=== PATIENT | female | born 1960 | race Caucasian/White ===

== ENCOUNTER 2016-11-06 15:41 | Emergency (ER) | payer OTHER ==
[~2016-11-06 15:41] MED LIST: ACETAMINOPHEN PO; ANTIVERT PO; ASPIRIN PO; FLAGYL PO; LISINOPRIL PO; LOPRESSOR PO; SYNTHROID PO; ZESTORETIC 10/11 TAB PO; ZOCOR PO
== END 2016-11-06 15:48 | disposition home or self-care (01) ==
LOC: CFTX 15:41
DX: B37.9 Candidiasis, unspecified (principal); I11.0 Hypertensive heart disease with heart failure; I50.9 Heart failure, unspecified; F17.210 Nicotine dependence, cigarettes, uncomplicated
CPT/HCPCS: 99282

== ENCOUNTER 2017-03-15 07:56 | Inpatient (IN) | payer OTHER ==
[~2017-03-15] VITALS: Ht 165.1 cm; Wt 58.0 kg
--- NOTE | ~2017-03-15 | EKG ---
PATIENT: DARIELA LOJA UNIT #: [id number] Ventricular Rate: 78 BPM Atrial Rate: 78 BPM P-R Interval: 170 ms QRS Duration: 110 ms Q-T Interval: 476 ms QTC Calculation(Bezet): 542 ms P [place]: 66 degrees Calculated R [place]: -47 degrees Calculated T [place]: 76 degrees Diagnosis Line: Normal sinus rhythm Diagnosis Line: Left anterior fascicular block Diagnosis Line: Cannot rule out Anterior infarct (cited on or Diagnosis Line: before 15-MAR-2017) Diagnosis Line: Prolonged QT Diagnosis Line: Abnormal ECG Diagnosis Line: When compared with ECG of 15-MAR-2017 08:16, Diagnosis Line: (unconfirmed) Diagnosis Line: Premature ventricular complexes are no longer Diagnosis Line: Present Diagnosis Line: QRS duration has decreased Diagnosis Line: No significant change was found Diagnosis Line: Confirmed by KARLI CROFT MD ([id number]) on 03/16/2017 Diagnosis Line: 3:15:07 PM INTERPRETING MD: LANG REED
--- NOTE | ~2017-03-15 | HP ---
Unit #: [id number] #: [id number] Patient: DARIELA LOJA [id number] [address] [place], [place] [address] [id number] I MR#: [id number] NAME: DARIELA LOJA ROOM: [facility] Age: 56 Sex: F Admission Date: 03/15/2017 : 1960 Attending Physician: Teddy Zepeda M.D. Primary Care Physician: Viridiana Mary M.D. HISTORY AND PHYSICAL CHIEF COMPLAINT Shortness of breath. HISTORY OF PRESENT ILLNESS The patient is a 56-year-old female with history of coronary artery disease status post PCI back in 2001 and COPD, brought to the emergency room complaining of the shortness of breath. The patient woke up early this morning with shortness of breath. The patient was in respiratory distress at the time of emergency arrival and was intubated for the respiratory distress. The patient is status post intubation and sedation and is unable to provide the history and history is obtained by the speaking to the ER physician and the patient's family. The patient's and the daughter at the bedside. The patient was recently discharged from the [facility] on January 17 with a COPD exacerbation and acute respiratory failure and non-ST elevation [place] secondary to demand ischemia. The patient had an EF of 30% on cath at [facility]. The patient continues to smoke one and a half packs daily. The patient was having gradual worsening of the shortness of breath since the last few weeks. The patient refuses to come to the office for further evaluation as per patient's . The patient is positive for the productive cough and denies any fevers or chills. PAST MEDICAL HISTORY History of coronary artery disease status post stents, hypertension, hyperlipidemia, hypothyroidism. PAST SURGICAL HISTORY She has a bare-metal stent placement, cardiac catheterization. SOCIAL HISTORY The patient lives with her and two dogs. She smokes one and a half packs per day of tobacco. She used alcohol until several months ago. She stopped drinking alcohol and denies any illicit drug abuse. FAMILY HISTORY Positive for coronary artery disease. ALLERGIES No known drug allergies. REVIEW OF SYMPTOMS Unable to obtain as the patient is not able to provide any history. PHYSICAL EXAMINATION Unit #: [id number] #: [id number] Patient: DARIELA LOJA GENERAL APPEARANCE: The patient is lying on the bed, not in acute distress, status post intubation and sedation. VITAL SIGNS: Temperature 98.4. Pulse 57. Respiration 16, sating 100% on ventilation. Blood pressure 122/66. HEENT: Head: Atraumatic, normocephalic. Dry mucous membrane. Status post orotracheal intubation. LUNGS: Decreased air, coarse breath and positive for rales. HEART: Regular rate and rhythm. Positive for murmur. ABDOMEN: Soft. Positive bowel sounds. EXTREMITIES: No cyanosis. No clubbing. Cold to touch. NEUROLOGIC: Unable to assess as the patient is being intubated. DIAGNOSTIC STUDIES LABORATORY: Troponin less than 0.05. ABG shows pH of 7.15, pCO2 56, pO2 160, bicarb 19.9, oxygen saturation 91.5. INR of one. CBC 10.8, hemoglobin 13.9, hematocrit 42.2, platelets 212. Lactic acid 7. Sodium 137, potassium 4, chloride 104, bicarb 18, glucose 375, BUN 23, creatinine one, AST 92, ALT 62. BNP 1,572. Troponin is less than 0.05. CK total is 135. Repeat ABG is pH 7.35, pCO2 40, pO2 138, bicarb 22.6. IMAGING: Chest x-ray shows pulmonary edema ASSESSMENT 1. Acute respiratory failure. 2. Chronic obstructive pulmonary disease exacerbation. 3. Acute on chronic systolic heart failure. 4. Lactic acidosis. PLAN To admit the patient to inpatient. The patient will be started on the dopamine drip and continue with dialysis. Lasix 40 mg IV b.i.d. The patient will be seen by Cardiology and Pulmonary. Continue with the empiric IV antibiotics with Zosyn to rule out aspiration/COPD exacerbation and repeat the lactic acid level again and further recommendations will follow are more lab results are available. Dictated by Nora Longo TD: 03/15/2017 17:47 JOB #: [id number] HISTORY AND PHYSICAL Page 1 of 1 X TEDDY ZEPEDA MD X HISTORY AND PHYSICAL
--- NOTE | ~2017-03-15 | CO ---
Unit #: [id number] #: [id number] Patient: DARIELA LOJA [id number] [address] [place], [place] [address] [id number] MR#: [id number] NAME: DARIELA LOJA ROOM: [facility] Age: 56 Sex: F Admission Date: 03/15/2017 : 1960 Attending Physician: Neelima Zepeda M.D. Primary Care Physician: Viridiana Mary M.D. Consultation Date: 03/15/2017 CONSULTATION REPORT HISTORY OF PRESENT ILLNESS This is a 56-year-old white female, who is known to Dr. Herman at [facility] who has an extensive history of coronary artery disease. According to the , the patient has had several myocardial infarctions in the past. She had a coronary artery bypass graft 5 years ago. In 06/2017, she had PCI with stent placement to the [place] second obtuse marginal branch and distal end-anastomosis site of the saphenous vein graft to the PLOM. There was unsuccessful PCI to the saphenous vein graft to the right coronary artery. She has stent placement to the saphenous vein graft to the diagonal branch in 08/2016. She was discharged on 01/17/2017 from [facility] with COPD exacerbation. At that time, the patient's troponin was apparently elevated according to the discharge note. No further workup was needed. The patient is currently intubated and is unable to provide a history. Information has been obtained from records from [facility] and from the who is at bedside. According to the , the patient has had shortness of breath for the past 2 weeks. She developed a nonproductive cough. She was unable to lie down because of dyspnea and coughing. He thought that she had some chest pain that has been ongoing since her open heart surgery in the past. He felt that she was doing better since she was a put on a "new blood thinner." Records from [facility] shows that the patient was on dual anti-platelet therapy with aspirin and Brilinta. He heard her yell out for him this morning. When he saw her, she was short of breath. EMS was dispatched and she was brought to the emergency room. In the emergency room, the patient was in respiratory distress and was asking to be intubated according to the nursing staff. She was subsequently intubated. She was hypertensive prior to intubation with blood pressure of 180/130 mmHg, but dropped to 88/59 mmHg. Her BNP elevated at with a chest x-ray noted for congestive heart failure. Troponin initially negative. There was a mild elevation of her LFTs, which most likely reflects hepatic congestion. Lactic acid was elevated at 7.0 with mild elevation of white count. The states that the patient is known to have congestive heart failure. According to records from [facility], the patient has LV dysfunction where an ejection fraction was 30% on cardiac catheterization. That record is unavailable as well as the echocardiogram. PAST MEDICAL HISTORY 1. PCI with stent placement to the mid LAD, 09/07/2014. 2. Non-ST elevation myocardial infarction, 08/08/2016, status post PCI with drug eluting stent to saphenous vein graft to the diagonal branch at [facility] per Dr. Herman. 3. PCI with drug-eluting stent, 06/18/2016, to the second obtuse marginal Unit #: [id number] #: [id number] Patient: DARIELA LOJA branch to the vein graft. Stent of the proximal and distal anastomosis site of the SVG to the PLOM bypass. There was unsuccessful PCTA attempt to saphenous vein graft to the right coronary artery bypass graft. 4. Coronary artery bypass graft 5 years ago, no details available. 5. PCI and stents after myocardial infarction to the right coronary artery in 2001. 6. Hypertension. 7. Hyperlipidemia. 8. Hypothyroidism. 9. COPD. 10. Chronic systolic heart failure. 11. History of GI bleed. 12. Active smoker. PAST SURGICAL HISTORY 1. Thyroidectomy. 2. Tonsillectomy. 3. Tubal ligation. 4. Coronary artery bypass graft. SOCIAL HISTORY The patient is . According to the , she continues to smoke. He denies any use of alcohol. FAMILY HISTORY Positive for coronary artery disease in her father. ALLERGIES No known drug allergies. HOME MEDICATIONS Currently unreconciled. REVIEW OF SYSTEMS Unable to obtain because the patient is currently intubated. PHYSICAL EXAMINATION VITAL SIGNS: Blood pressure 180/130 to 88/59, heart rate 69, temperature 98.4, BMI is 24. GENERAL: This is a well-developed, 56-year-old white female, who is currently intubated and sedated. HEART: S1 and S2. Heart sounds are normal. No murmurs. No rubs or clicks. Regular rate and rhythm. LUNGS: Crackles in both lung bases. ABDOMEN: Soft and nontender. Bowel sounds are hypoactive. EXTREMITIES: With absent pedal pulses on the left and right with palpable pedal pulses. There is no leg edema. SKIN: Warm and dry. DIAGNOSTIC STUDIES LABORATORY RESULTS: Hemoglobin 13.9, hematocrit 42.2, platelet count 212, white count 10.8. Sodium 137, potassium 4.0, BUN 23, creatinine 1.0, glucose 375, AST 92, ALT 62, troponin less than 0.05, BNP , lactic acid 7.0. IMAGING STUDIES: Chest x-ray shows congestive heart failure. CARDIOVASCULAR STUDIES: EKG shows normal sinus rhythm with a rate of 84 Unit #: [id number] #: [id number] Patient: DARIELA LOJA beats per minute with left axis deviation, old inferior infarct, incomplete left bundle-branch block and premature ventricular complexes. IMPRESSION 1. Acute on chronic hypoxic respiratory failure. 2. Chronic obstructive pulmonary disease exacerbation. 3. Acute on chronic systolic heart failure with ejection fraction of 30%. 4. Coronary artery disease with history of myocardial infarction, coronary artery bypass graft and multiple percutaneous coronary interventions and stents. 5. History of hypertension, currently hypotensive. 6. Lactic acidosis. 7. Nicotine abuse. 8. Acute pulmonary edema. PLAN 1. Cardiology was consulted for congestive heart failure. We will diurese the patient with IV diuretics. 2. Continue to trend troponin to rule out myocardial infarction. 3. Continue dual anti-platelet therapy with aspirin and Brilinta given recent stent placed in 08/2016. 4. The patient has acute pulmonary edema and evidence of lactic acidosis with peripheries cold and clammy, probably secondary to vasoconstriction. We will try a small dose of dopamine given her EF was only 30% as per records at [facility]. 5. We will obtain records from [facility] of echocardiogram. 6. We will follow the patient with you. 7. Follow up with Dr. Herman at discharge. Thank you for allowing us to assist in this patient's care. Dictated by... Dennis Singh A.P.R.N. for Nora Marshall/cleve TD: 03/17/2017 03:35 JOB #: [id number] Kei Herman M.D. CONSULTATION REPORT Page 1 of 1 X Dennis Singh APRN X CONSULTATION REPORT
--- NOTE | ~2017-03-15 | EKG ---
PATIENT: DARIELA LOJA UNIT #: [id number] Ventricular Rate: 84 BPM Atrial Rate: 84 BPM P-R Interval: 172 ms QRS Duration: 132 ms Q-T Interval: 430 ms QTC Calculation(Bezet): 508 ms P [place]: 69 degrees Calculated R [place]: -50 degrees Calculated T [place]: 102 degrees Diagnosis Line: Sinus rhythm with occasional Premature ventricular Diagnosis Line: complexes Diagnosis Line: Left axis deviation Diagnosis Line: Non-specific intra-ventricular conduction block Diagnosis Line: Cannot rule out Septal infarct , age undetermined Diagnosis Line: T wave abnormality, consider lateral ischemia Diagnosis Line: Abnormal ECG Diagnosis Line: No previous ECGs available Diagnosis Line: Confirmed by KARLI CROFT MD ([id number]) on 03/16/2017 Diagnosis Line: 3:03:54 PM INTERPRETING MD: LANG REED
--- NOTE | ~2017-03-15 | CR72 ---
[facility] A Service of [facility] RADIOLOGY TEXT RESULTS PATIENT: DARIELA LOJA LOCATION: [facility] 579- : [birth year] UNIT #: [id number] AGE: [address]: Chen Pulido MD SEX: F ORDER DR: [id number] [facility] [address] [facility]. [place], [place] [address] [id number] I MR#: [id number] #: [id number] NAME: DARIELA LOJA : 1960 SEX: F STUDY DATE/TIME: 03/17/2017 6:03 UNIT: [facility] ROOM: [facility] STUDY DESCRIPTION: CR Chest Single View Portable Attending Physician: Neelima Zepeda M.D. Ordering Physician: Zack Mccray M.D. Primary Care Physician: Viridiana Mary M.D. MEDICAL IMAGING REPORT This report is preliminary unless electronic signature is present EXAM Portable chest HISTORY 56-year-old female with respiratory failure, COPD exacerbation. COMPARISON 03/16/2017 FINDINGS Interval removal of the patient's endotracheal tube. Mild pulmonary hyperinflation. No infiltrates or effusions. Heart and mediastinum unremarkable except for post median sternotomy changes and prior CABG. Flexible feeding tube courses through the mediastinum, distal tip not visualized but well below the GE junction. No pneumothorax. Dictated by... Laisha Davalos M.D. THIS IS AN ELECTRONICALLY VERIFIED REPORT Laisha Davalos M.D. at 03/17/2017 4:47 PM MONAE/kyle TD: 03/17/2017 08:30 JOB #: [id number] MEDICAL IMAGING REPORT Page 1 of 1 COPY
--- NOTE | ~2017-03-15 | CO ---
Unit #: [id number] #: [id number] Patient: DARIELA LOJA [id number] [address] [place], [place] [address] [id number] I MR#: [id number] NAME: DARIELA LOAJ ROOM: 579 Age: 56 Sex: F Admission Date: 03/15/2017 : 1960 Attending Physician: Chen Pulido M.D. Primary Care Physician: Viridiana Mary M.D. Consultation Date: 03/16/2017 CONSULTATION REPORT INDICATION FOR CONSULT Respiratory failure. HISTORY OF PRESENT ILLNESS All history is obtained from chart and staff. This patient is nonverbal secondary to sedation and endotracheal tube. The patient had recently been discharged from [facility] 01/17/2017 after presenting with shortness of breath and chest tightness. She had been treated with steroids and antibiotics and seen by Cardiology at that point, where further workup we felt was not necessary. She was discharged with doxycycline and prednisone to complete her course. She had a history of coronary artery bypass surgery and stenting in 08/2016 with her prior echo in 02/2016 revealing an EF 25% to 30%. She had continued to smoke. She had a bare-metal stent placed in 09/2014 to the mid LAD. Cardiac cath in 07/2016 showed severe left ventricular systolic dysfunction with mild mitral regurgitation, severe three-vessel coronary artery disease with atretic, but patent mid LAD, patent and stented Y graft to two marginal branches, circumflex with small severely diffuse disease diagonal branch and chronically occluded SVG to RCA. In 08/2016, she had drug-eluting stent to the SVG to diagonal and in 06/2016 had a drug-eluting stent placement as well too. She presented here yesterday in respiratory distress and was intubated in the ER and then transferred to the ICU for further management. PAST MEDICAL HISTORY Positive for CHF, COPD, coronary artery disease, hypertension, dyslipidemia. PAST SURGICAL HISTORY Include excessive cardiac catheterization, thyroidectomy in 2001. ALLERGIES No known drug allergies. SOCIAL HISTORY Positive for tobacco abuse. FAMILY HISTORY Positive for coronary artery disease in her dad. MEDICATIONS Current home medications include aspirin, atorvastatin, Coreg, hydrocodone, hydroxyzine, isosorbide dinitrate, levothyroxine, lisinopril, nitroglycerin, Ranexa, Brilinta, guaifenesin. Unit #: [id number] #: [id number] Patient: DARIELA LOJA In the ER, she received IV Lasix and Solu-Medrol. PHYSICAL EXAMINATION VITAL SIGNS: Temperature 99.7, pulse 66, respirations 16, blood pressure 98/60. GENERAL: The patient awake on the vent. She is orally intubated. HEENT: Pupils are equal and reactive to light stimulus. Extraocular motion intact. Conjunctivae normal. Oral mucosa, pink and moist without lesion. No tongue deviation on protrusion. Soft palate intact. NECK: Trachea midline. No cervical or supraclavicular adenopathy. LUNGS: Clear to auscultation without wheezes, rhonchi, or rales. CARDIAC: Regular rate and rhythm. S1 and S2 are auscultated without murmur. ABDOMEN: Soft, nontender, nondistended. Positive bowel sounds. EXTREMITIES: Moves all 4 extremities with good strength and tone. No cyanosis, clubbing, or edema. SKIN: Cool and dry. NEUROLOGIC: Calm affect. She does follow complex commands on the ventilator. DIAGNOSTIC STUDIES IMAGING STUDIES: Chest x-ray on admission showed bilateral interstitial markings consistent with pulmonary edema. Chest x-ray this morning shows significant clearance. LABORATORY RESULTS: White count on admission was 10, hematocrit was 42, platelets 212. ABG on admission showed pH of 7.1, pCO2 of 56, PO2 of 160 with a lactate of 7. This morning, her pH is 7.49, pCO2 of 34, PO2 of 94. Troponin 0.7. White count 12, hematocrit 44, and platelets 220. Sodium 136, potassium 3.1, chloride 98, bicarb 24, glucose 148, BUN 19, creatinine 0.9. Lactate 0.5. IMPRESSION 1. Respiratory failure. 2. congestive heart failure. 3. Resolved lactic acidosis. PLAN There is no pneumonia on chest x-ray. She had a normal white count, on admission. Plan to discontinue antibiotics as I do not feel we are dealing with an active infection and more likely we felt lactic acidosis related to poor cardiac perfusion from underlying heart failure. Although as well as the possibility of hypoxic stress related to underlying COPD and ongoing tobacco abuse. Plan is stop sedation and attempt . We will use BiPAP once extubated, initiate an aggressive bronchodilator regimen. Diuretics and pressors per . We will continue to follow and make further recommendations clinically if indicated. Thank you for the opportunity to be involved in her care. Dictated by... Zack Mccray M.D. ARIELA/cleve TD: 03/17/2017 01:19 Unit #: [id number] #: [id number] Patient: DARIELA LOJA JOB #: [id number] CONSULTATION REPORT Page 1 of 1 X Zack Mccray MD X CONSULTATION REPORT
--- NOTE | ~2017-03-15 | CR72 ---
[facility] A Service of [facility] RADIOLOGY TEXT RESULTS PATIENT: DARIELA LOJA LOCATION: [place] [id number] : [birth year] UNIT #: [id number] AGE: [address]: TEDDY ZEPEDA MD SEX: F ORDER DR: [id number] [facility] [address] [place], [place] [address] [id number] I MR#: [id number] Acc #: [id number] NAME: DARIELA LOJA : 1960 SEX: F STUDY DATE/TIME: 03/15/2017 8:14 UNIT: [facility] ROOM: [facility] STUDY DESCRIPTION: CR Chest Single View Portable Attending Physician: Teddy Zepeda M.D. Ordering Physician: Harshad Sanchez M.D. Primary Care Physician: Viridiana Mary M.D. MEDICAL IMAGING REPORT This report is preliminary unless electronic signature is present EXAM Portable chest, 03/15/17 HISTORY Dyspnea, shortness of breath onset today with intubation TECHNIQUE Single AP view of the chest was obtained and compared with 01/29/09. FINDINGS Postoperative changes of CABG are noted. Cardiomegaly is seen. The tip of the endotracheal tube is in good position above the omar. In the lungs diffuse interstitial edema is seen with mild pulmonary vascular congestion and Damian's lines. Findings suggest moderate congestive heart failure. No pleural fluid is noted. IMPRESSION 1. Moderate congestive heart failure with Damian's lines, interstitial edema and pulmonary vascular congestion. 2. The tip of the endotracheal tube is in good position above the omar. Dictated by... Uriah Odom M.D. THIS IS AN ELECTRONICALLY VERIFIED REPORT Uriah Odom M.D. at 03/16/2017 10:32 AM PIA/vinny TD: 03/16/2017 01:54 JOB #: [id number] [facility] A Service [facility] RADIOLOGY TEXT RESULTS PATIENT: DARIELA LOJA LOCATION: [facility] [id number] : [birth year] UNIT #: [id number] AGE: [address]: TEDDY ZEPEDA MD SEX: F ORDER DR: MEDICAL IMAGING REPORT Page 1 of 1 COPY
--- NOTE | ~2017-03-15 | DS ---
Unit #: [id number] #: [id number] Patient: DARIELA LOJA [id number] [address] [address] [id number] I MR#: [id number] NAME: DARIELA LOJA ROOM: 579 Age: 56 Sex: F Admission Date: 03/15/2017 : 1960 Discharge Date: Attending Physician: Chen Pulido M.D. Primary Care Physician: Viridiana Mary M.D. DISCHARGE SUMMARY DISCHARGE DIAGNOSES 1. Acute hypercapnic hypoxic respiratory failure. 2. Acute on chronic systolic heart failure with ejection fraction 30% to 35%. 3. Elevated troponins. 4. Lactic acidosis likely from congestive heart failure. 5. History of coronary artery disease with non-ST elevation myocardial infarction in August 2016 status post percutaneous coronary intervention with drug-eluting stent. 6. Hyperlipidemia. 7. Hypothyroidism. 8. Chronic obstructive pulmonary disease with exacerbation. 9. History of gastrointestinal bleed. 10. Active smoker. 11. Hypertension. 12. Mild transaminitis, likely from congestive heart failure. CONSULTATIONS 1. Dr. Knight. 2. Dr. Gilman. PROCEDURES None. DIAGNOSTIC TESTING LAB DATA: Sodium 138, potassium 4.1, creatinine 0.9. WBC 8.3, hemoglobin 15.5, platelets 238. Troponin is 0.14. Cholesterol 412, LDL 316, HDL 48. BNP 511. TSH 9.8. Blood cultures negative. IMAGING: Chest x-ray shows interval improvement in appearance. Underlying COPD present. ALLERGIES None. DISCHARGE MEDICATIONS 1. Atorvastatin 80 mg p.o. daily. 2. Hydroxyzine 25 p.o. t.i.d. 3. Coreg 6.25 p.o. b.i.d. 4. Lasix 20 p.o. b.i.d. 5. Lisinopril 5 mg p.o. daily. 6. Aspirin 81 mg daily. 7. Lortab 5 mg q.6 p.r.n. pain. 8. Ranexa 1,000 mg p.o. b.i.d. Unit #: [id number] #: [id number] Patient: DARIELA LOJA 9. Brilinta 90 mg p.o. b.i.d. 10. Levothyroxine 150 mcg p.o. daily. 11. Imdur ER 30 mg p.o. daily. 12. Nitroglycerin 0.4 sublingual p.r.n. chest pain. 13. Potassium 10 mEq daily. 14. Albuterol MDI 2 puffs inhalation q.i.d. p.r.n. pain. 15. Symbicort 2 puffs inhalation 160 mcg b.i.d. HOSPITALIZATION COURSE A 56 year old admitted with shortness of breath. Acute hypercapnic hypoxic respiratory failure from COPD and CHF. Currently she is off oxygen. She does not need home O2. Acute on chronic systolic heart failure, ejection fraction 30% to 35%. Patient seen by cardiology. They started her on IV diuretics. Currently compensated. Continue with p.o. Lasix and lisinopril. She does need evaluation for AICD as an outpatient. COPD with exacerbation. Started on IV Solu-Medrol and DuoNeb. Currently off oxygen. Lungs better. No wheezing. Continue with albuterol and Symbicort and outpatient followup with Dr. Gilman. Lactic acidosis secondary to CHF, resolved. Hypertension with mild hypotension secondary to medications, resolved. Continue current medications with caution. History of coronary artery disease with elevated troponin status post PCI. The patient was seen by cardiology. They recommend continue with Brilinta, aspirin and Lipitor. Smoking. Advised to quit. DISCHARGE PLAN 1. The patient will be discharged home. 2. Follow with family physician in 1 week. 3. Follow with Dr. Gilman in 3 weeks. 4. Follow with Dr. Knight on 05/05/2017. 5. The patient will have CHF education. 6. The patient will have AICD evaluation as an outpatient by Dr. Knight. NOTE: Discharge time taken is 32 minutes. Dictated by... Nora Li TD: 03/19/2017 14:01 JOB #: [id number] Unit #: [id number] #: [id number] Patient: DARIELA LOJA DISCHARGE SUMMARY Page 1 of 1 X Chen Pulido MD X DISCHARGE SUMMARY
--- NOTE | ~2017-03-15 | CR72 ---
[facility] A Service of [facility] & [facility] RADIOLOGY TEXT RESULTS PATIENT: DARIELA LOJA LOCATION: [facility] [place] [facility] 579-01 : [birth year] UNIT #: [id number] AGE: [address]: Chen Pulido MD SEX: F ORDER DR: [id number] [facility] [address] [place], [place] [address] [id number] I MR#: [id number] Acc #: [id number] NAME: DARIELA LOJA : 1960 SEX: F STUDY DATE/TIME: 03/16/2017 5:58 UNIT: [facility] ROOM: [facility] STUDY DESCRIPTION: CR Chest Single View Portable Attending Physician: Neelima Zepeda M.D. Ordering Physician: Brian Vu M.D. Primary Care Physician: Viridiana Mary M.D. MEDICAL IMAGING REPORT This report is preliminary unless electronic signature is present EXAM Chest x-ray single view portable HISTORY Respiratory failure with COPD exacerbation starting 03/15/2017. Patient also has a history of essential hypertension and is a smoker. COMMENT Single frontal portable view of the chest timed 05:58 on 03/16/2017 reviewed. Comparison from 03/15/2017. There is endotracheal tube satisfactorily positioned. Mild postoperative cardiac silhouette enlargement noted. Feeding tube seen, tip not on film. There is no evidence for acute infiltrate, acute congestive failure, pleural effusion or pneumothorax. The chest is improved since yesterday, with some apparent resolution of volume overload. Please correlate with clinical course. IMPRESSION 1. Interval improvement in the appearance of the chest since yesterday with apparent resolution of volume overload. There is postoperative cardiac silhouette enlargement, unchanged. Endotracheal tube satisfactory. Distortion of pulmonary parenchymal architecture again seen consistent with known underlying chronic obstructive lung disease. Dictated by... Karen Sherman M.D. THIS IS AN ELECTRONICALLY VERIFIED REPORT Karen Sherman M.D. at 03/17/2017 4:50 PM [facility] A Service of [facility] & [facility] RADIOLOGY TEXT RESULTS PATIENT: DARIELA LOJA LOCATION: C5 579-01 : [birth year] UNIT #: [id number] AGE: [address]: Chen Pulido MD SEX: F ORDER DR: Vivienne TD: 03/16/2017 22:23 JOB #: [id number] MEDICAL IMAGING REPORT Page 1 of 1 COPY
--- NOTE | ~2017-03-15 | CR7 ---
[facility] A Service of [facility] & [facility] RADIOLOGY TEXT RESULTS PATIENT: DARIELA LOJA LOCATION: [address]3-21 : [birth year] UNIT #: [id number] AGE: [address]: TEDDY ZEPEDA MD SEX: F ORDER DR: [id number] [facility] [address] [facility]. [place], [place] [address] [id number] I MR#: [id number] Acc #: [id number] NAME: DARIELA LOJA : 1960 SEX: F STUDY DATE/TIME: 03/15/2017 16:00 UNIT: [facility] ROOM: [facility] STUDY DESCRIPTION: CR Abdomen Single AP View Attending Physician: Teddy Zepeda M.D. Ordering Physician: Brian Vu M.D. Primary Care Physician: Viridiana Mary M.D. MEDICAL IMAGING REPORT This report is preliminary unless electronic signature is present EXAM Portable abdomen. HISTORY Dobbhoff tube placement. FINDINGS Portable radiograph of the abdomen for Dobbhoff tube placement demonstrates the feeding tube tip is in the medial left upper quadrant at the level of the proximal stomach 6 cm beyond the EG junction. The bowel gas pattern is normal. Dictated by... Marvin Ramos M.D. THIS IS AN ELECTRONICALLY VERIFIED REPORT Marvin Ramos M.D. at 03/16/2017 10:06 PM DFL/kristy TD: 03/16/2017 17:08 JOB #: [id number] MEDICAL IMAGING REPORT Page 1 of 1 COPY
[2017-03-15 08:40] LABS: ARTERIAL BLD GAS O2 SATURATION 91.5 % (90.0-100.0); ARTERIAL BLOOD GAS CARBOXY HB 6.8 %sat (0.0-9.0); ARTERIAL BLOOD GAS HCO3 19.9 mmol/L; ARTERIAL BLOOD GAS MET HB 0.7 %sat (0.0-2.0)
[2017-03-15 08:41] LABS: POC - CKMB 2.2 ng/mL (0.0-7.9); POC - TROPONIN <0.05 ng/mL (<=0.05)
[2017-03-15 08:43] LABS: ARTERIAL BLOOD GAS ALLEN TEST NORMAL; ARTERIAL BLOOD GAS ART SITE RIGHT RADIAL; ARTERIAL BLOOD GAS DELIVERY VENT; ARTERIAL BLOOD GAS PCO2 56.4 mmHg (35.0-45.0); ARTERIAL BLOOD GAS VENT MODE AC; ARTERIAL BLOOD GAS pH 7.155 (7.350-7.450); ARTERIAL DRAW? YES
[2017-03-15 08:43] LABS: BASOPHIL# 0.1 X10e3 (0-0.3); BASOPHIL% 1.1 % (0-2.5); EOSINOPHIL# 0.2 X10e3 (0-0.7); EOSINOPHIL% 1.4 % (0.0-7.0); HEMATOCRIT 42.2 % (35.0-45.0); HEMOGLOBIN 13.9 gm/dL (12.0-16.0); LYMPHOCYTE# 5.8 X10e3 (1.0-3.5); LYMPHOCYTE% 54.2 % (17.0-45.0); MEAN CORPUSCULAR HEMOGLOBIN 30.9 PG (28-34); MEAN CORPUSCULAR HGB CONC 32.8 g/dL (30-36); MEAN PLATELET VOLUME 7.7 FL (6.5-11.5); MONOCYTE# 0.4 X10e3 (0-1.0); NEUTROPHIL# 4.2 X10e3 (1.5-7.1); NEUTROPHIL% 39.3 % (40-75); PLATELET COUNT 212 X10e3 (140-420); RED BLOOD COUNT 4.49 X10e (3.90-5.30); RED CELL DISTRIBUTION WIDTH 20.2 % (11.0-15.5); WHITE BLOOD COUNT 10.8 X10e3 (4.0-10.5)
[2017-03-15 08:44] LABS: DIFF IND YES
[2017-03-15 08:48] LABS: PARTIAL THROMBOPLASTIN TIME 27.8 SECONDS (23.5-31.3); PROTHROMBIN TIME (PATIENT) 10.8 SECONDS (10.0-11.7)
[2017-03-15 08:59] LABS: ANISOCYTOSIS MOD; PLATELET ESTIMATE NORMAL (NORMAL)
[2017-03-15 09:01] LABS: ALBUMIN SERUM 3.8 g/dL (3.5-5.0); BILIRUBIN, DIRECT 0.2 mg/dL (0.0-0.2); BILIRUBIN,TOTAL 0.2 mg/dL (0.2-2.0); CALCIUM SERUM 8.4 mg/dL (8.4-10.2); GLOM FILT RATE Estimated 63.4 mL/min (>60); PROTEIN TOTAL SERUM 6.7 g/dL (6.0-8.3)
[2017-03-15 10:02] LABS: POC - CKMB 2.4 ng/mL (0.0-7.9); POC - TROPONIN <0.05 ng/mL (<=0.05)
[2017-03-15 11:24] LABS: ARTERIAL BLD GAS O2 SATURATION 94.4 % (90.0-100.0); ARTERIAL BLOOD GAS CARBOXY HB 4.2 %sat (0.0-9.0); ARTERIAL BLOOD GAS HCO3 22.6 mmol/L; ARTERIAL BLOOD GAS MET HB 0.8 %sat (0.0-2.0); ARTERIAL BLOOD GAS PCO2 40.3 mmHg (35.0-45.0); ARTERIAL BLOOD GAS pH 7.357 (7.350-7.450)
[2017-03-15 11:25] LABS: ARTERIAL BLOOD GAS ALLEN TEST NORMAL; ARTERIAL BLOOD GAS ART SITE RIGHT RADIAL; ARTERIAL BLOOD GAS DELIVERY VENT; ARTERIAL BLOOD GAS VENT MODE AC; ARTERIAL DRAW? YES
[2017-03-15 15:58] LABS: %MB 3.8 % (0.0-4.0); MB 5.1 ng/ml
[2017-03-15] MEDS ORDERED: MORGIDOX100 MG PO (16:58)
[2017-03-15] MEDS ORDERED: ATORVASTATIN CA80 MG PO (17:08)
[2017-03-15] MEDS ORDERED: COREG3.125 MG PO (17:08)
[2017-03-15] MEDS ORDERED: ASPIRIN81 M2 PO (17:08)
[2017-03-15] MEDS ORDERED: HYDROCODON-ACE1 EAC7 PO (17:10)
[2017-03-15] MEDS ORDERED: HYDROXYZINE PAM25 M1 PO (17:11)
[2017-03-15] MEDS ORDERED: ISOSORBIDE DINIT5 MG PO (17:12)
[2017-03-15] MEDS ORDERED: LISINOPRIL2.5 MG PO ×2 (17:13→17:14)
[2017-03-15] MEDS ORDERED: LEVOTHYROXINE150 MCG PO (17:13)
[2017-03-15] MEDS ORDERED: NITROGLYGERIN0.4 MG SL (17:15)
[2017-03-15] MEDS ORDERED: RANEXA1000 MG PO (17:15)
[2017-03-15] MEDS ORDERED: BRILINTA90 MG PO (17:16)
[2017-03-15] MEDS ORDERED: MUCUS RELIEF600 M1 PO (17:24)
[2017-03-15 20:45] LABS: %MB 3.8 % (0.0-4.0); MB 4.4 ng/ml
[2017-03-16 02:54] LABS: BASOPHIL% 0.3 % (0-2.5); HEMATOCRIT 44.6 % (35.0-45.0); HEMOGLOBIN 14.9 gm/dL (12.0-16.0); LYMPHOCYTE# 1.3 X10e3 (1.0-3.5); LYMPHOCYTE% 10.7 % (17.0-45.0); MEAN CORPUSCULAR HEMOGLOBIN 30.1 PG (28-34); MEAN CORPUSCULAR HGB CONC 33.4 g/dL (30-36); MEAN PLATELET VOLUME 7.4 FL (6.5-11.5); MONOCYTE# 0.7 X10e3 (0-1.0); MONOCYTE% 5.5 % (3.0-12.0); NEUTROPHIL% 83.5 % (40-75); PLATELET COUNT 220 X10e3 (140-420); RED BLOOD COUNT 4.95 X10e (3.90-5.30); RED CELL DISTRIBUTION WIDTH 18.8 % (11.0-15.5)
[2017-03-16 02:56] LABS: DIFF IND NO
[2017-03-16 03:18] LABS: BUN/CREATININE RATIO 21.11; CALCIUM SERUM 8.4 mg/dL (8.4-10.2); CREATININE SERUM 0.9 mg/dL (0.6-1.4); MAGNESIUM 1.8 mg/dL (1.6-3.0); POTASSIUM 3.1 mmol/L (3.5-5.1)
[2017-03-16 03:53] LABS: ARTERIAL BLD GAS O2 SATURATION 96.4 % (90.0-100.0); ARTERIAL BLOOD GAS ALLEN TEST NORMAL; ARTERIAL BLOOD GAS ART SITE RIGHT RADIAL; ARTERIAL BLOOD GAS CARBOXY HB 0.7 %sat (0.0-9.0); ARTERIAL BLOOD GAS DELIVERY VENT; ARTERIAL BLOOD GAS HCO3 26.5 mmol/L; ARTERIAL BLOOD GAS MET HB 1.1 %sat (0.0-2.0); ARTERIAL BLOOD GAS PCO2 34.5 mmHg (35.0-45.0); ARTERIAL BLOOD GAS PO2 90.7 mmHg (80.0-100); ARTERIAL BLOOD GAS VENT MODE AC; ARTERIAL BLOOD GAS pH 7.494 (7.350-7.450); ARTERIAL DRAW? YES
[2017-03-16 06:22] LABS: %MB 3.1 % (0.0-4.0); MB 4.1 ng/ml
[2017-03-17 05:41] LABS: BASOPHIL% 0.2 % (0-2.5); DIFF IND NO; EOSINOPHIL% 0.4 % (0.0-7.0); HEMATOCRIT 46.9 % (35.0-45.0); HEMOGLOBIN 15.7 gm/dL (12.0-16.0); LYMPHOCYTE# 1.6 X10e3 (1.0-3.5); LYMPHOCYTE% 15.3 % (17.0-45.0); MEAN CORPUSCULAR HEMOGLOBIN 30.5 PG (28-34); MEAN CORPUSCULAR HGB CONC 33.5 g/dL (30-36); MEAN PLATELET VOLUME 7.7 FL (6.5-11.5); MONOCYTE# 0.7 X10e3 (0-1.0); MONOCYTE% 6.1 % (3.0-12.0); NEUTROPHIL# 8.3 X10e3 (1.5-7.1); PLATELET COUNT 221 X10e3 (140-420); RED BLOOD COUNT 5.16 X10e (3.90-5.30); RED CELL DISTRIBUTION WIDTH 18.9 % (11.0-15.5); WHITE BLOOD COUNT 10.7 X10e3 (4.0-10.5)
[2017-03-17 06:01] LABS: BUN/CREATININE RATIO 27.5; CREATININE SERUM 0.8 mg/dL (0.6-1.4); GLOM FILT RATE Estimated 83.1 mL/min (>60); POTASSIUM 3.5 mmol/L (3.5-5.1)
[2017-03-17 13:44] LABS: CHOLESTEROL 412 mg/dL (0-200); HDL CHOLESTEROL 48 mg/dL (35-95); LDL/HDL RATIO 7 RATIO (0-4); TRIGLYCERIDES 240 mg/dL (10-160)
[2017-03-17 13:46] LABS: LDL CHOLESTEROL 316 mg/dL (-130)
[2017-03-18 05:13] LABS: HEMATOCRIT 46.4 % (35.0-45.0); HEMOGLOBIN 15.5 gm/dL (12.0-16.0); MEAN CELL VOLUME 90.3 FL (83-96); MEAN CORPUSCULAR HEMOGLOBIN 30.3 PG (28-34); MEAN CORPUSCULAR HGB CONC 33.5 g/dL (30-36); MEAN PLATELET VOLUME 7.2 FL (6.5-11.5); RED BLOOD COUNT 5.13 X10e (3.90-5.30); RED CELL DISTRIBUTION WIDTH 18.1 % (11.0-15.5); WHITE BLOOD COUNT 8.3 X10e3 (4.0-10.5)
[2017-03-18 06:10] LABS: BUN/CREATININE RATIO 26.92; CALCIUM SERUM 9.2 mg/dL (8.4-10.2); CREATININE SERUM 1.3 mg/dL (0.6-1.4); GLOM FILT RATE Estimated 46.2 mL/min (>60); MAGNESIUM 2.3 mg/dL (1.6-3.0); POTASSIUM 3.9 mmol/L (3.5-5.1)
[2017-03-19 07:52] LABS: BUN/CREATININE RATIO 51.11; CALCIUM SERUM 9.4 mg/dL (8.4-10.2); CREATININE SERUM 0.9 mg/dL (0.6-1.4); POTASSIUM 4.1 mmol/L (3.5-5.1)
[2017-03-19] MEDS ORDERED: LASIX20 MG PO (16:57)
[2017-03-19] MEDS ORDERED: IMDUR-ER30 MG PO (17:01)
[2017-03-19] MEDS ORDERED: POTASSIUM CHLO10 MEQ PO (17:05)
[2017-03-19] MEDS ORDERED: ALBUTEROL17 GM INH (17:06)
[2017-03-19] MEDS ORDERED: SYMBICORT INH (17:07)
[2017-04-30] MEDS ORDERED: LASIX PO (11:36)
[2017-04-30] MEDS ORDERED: ALBUTEROL17 GM INH (11:37)
[2017-04-30] MEDS ORDERED: ASPIRIN81 M2 PO (11:37)
[2017-04-30] MEDS ORDERED: HYDROCODON-ACE1 EAC5 PO (11:38)
[2017-04-30] MEDS ORDERED: COREG6.25 M1 PO (11:38)
[2017-04-30] MEDS ORDERED: LIPITOR PO (11:38)
[2017-04-30] MEDS ORDERED: MUCINEX1200 MG PO (11:38)
[2017-04-30] MEDS ORDERED: NITROSTAT0.4 MG PO (11:39)
[2017-04-30] MEDS ORDERED: ZESTRIL10 M1 PO (11:39)
[2017-04-30] MEDS ORDERED: HYDROXYZINE HCL25 M1 PO (11:39)
[2017-04-30] MEDS ORDERED: IMDUR-ER60 M1 PO (11:39)
[2017-04-30] MEDS ORDERED: SYNTHROID25 MCG PO (11:39)
[2017-04-30] MEDS ORDERED: BRILINTA90 MG PO (11:40)
[2017-04-30] MEDS ORDERED: RANEXA500 MG PO (11:40)
[2017-05-01] MEDS ORDERED: ALDACTONE25 MG PO (14:36)
== END 2017-03-19 19:22 | disposition home or self-care (01) | DRG 208 ==
LOC: CED 07:56 → CEDOF 10:09 → C5C 10:09 → CEDOF 11:02 → CED 11:02 → CEDOF 11:57 → CICCU3 11:57 → C5C 03-17 14:51
PROVIDERS: Emergency Medicine; Internal Medicine; Internal Medicine Cardiovascular Disease; Nurse Practitioner
PROC: 0BH17EZ Insertion of Endotracheal Airway into Trachea, Via Natural or Artificial Opening (ICD-10-PCS; principal; 2017-03-15)
PROC: 5A1945Z Respiratory Ventilation, 24-96 Consecutive Hours (ICD-10-PCS; 2017-03-15)
DX: J96.01 Acute respiratory failure with hypoxia (principal); I50.23 Acute on chronic systolic (congestive) heart failure; J44.1 Chronic obstructive pulmonary disease with (acute) exacerbation; E87.2 Acidosis; J96.02 Acute respiratory failure with hypercapnia; I25.10 Atherosclerotic heart disease of native coronary artery without angina pectoris; Z95.5 Presence of coronary angioplasty implant and graft; I25.2 Old myocardial infarction; E78.5 Hyperlipidemia, unspecified; E03.9 Hypothyroidism, unspecified; F17.210 Nicotine dependence, cigarettes, uncomplicated; Z98.51 Tubal ligation status; I95.2 Hypotension due to drugs; Z71.6 Tobacco abuse counseling; R74.9 Abnormal serum enzyme level, unspecified; R74.0 Nonspecific elevation of levels of transaminase and lactic acid dehydrogenase [LDH]
CPT/HCPCS: 31500; 36415; 36600; 71010; 74000; 80048; 80061; 80076; 82550; 82553; 82803; 82947; 83605; 83735; 83880; 84132; 84443; 84484; 85025; 85027; 85610; 85730; 87040; 92610; 93005; 94002; 94003; 94640; 94660; 94760; 94761; 96361; 96374; 96375; 97162; 97166; 97530; 97535; 99291; G8978-GP; G8979-GP; G8987-GO; G8988-GO; G8996-GN; G8997-GN; G8998-GN; J0330; J1265; J1650; J1940; J2250; J2543; J2930; J3010